=== PATIENT | female | born 1955 | race Caucasian/White ===

== ENCOUNTER → 2017-09-07 | Outpatient (CLI) | payer OTHER ==
[~2017-09-07] MED LIST: DULO30 PO; LEVSOD50 PO
== END ==
LOC: LAB SHORT 18:16 → LAB EV 18:16
DX: H60.11 Cellulitis of right external ear (principal)
CPT/HCPCS: 87070; 87147; 87205

== ENCOUNTER 2017-09-28 11:29 | Day surgery (SDC) | payer OTHER ==
[~2017-09-28] VITALS: Ht 167.6 cm; Wt 95.0 kg
[2017-09-28] MEDS ORDERED: Advair Hfa 230-12 GM (11:36)
[2017-09-28] MEDS ORDERED: DICL75ER (11:36)
[2017-09-28] MEDS ORDERED: ALBU90OI6 (11:36)
[2017-09-28] MEDS ORDERED: HYDR1TAB94 (11:36)
[2017-09-28 13:32] LABS: Hemoglobin 8.8 g/dL (11.5-16.0)
== END 2017-09-28 14:00 | disposition home or self-care (01) ==
LOC: ORSCSDS 11:29
PROVIDERS: Internal Medicine Gastroenterology
PROC: 0DJ08ZZ Inspection of Upper Intestinal Tract, Via Natural or Artificial Opening Endoscopic (ICD-10-PCS; principal; 2017-09-28 15:45)
DX: K92.1 Melena (principal); D64.9 Anemia, unspecified; J45.909 Unspecified asthma, uncomplicated; E03.9 Hypothyroidism, unspecified; Z79.899 Other long term (current) drug therapy; R10.9 Unspecified abdominal pain; Z87.11 Personal history of peptic ulcer disease; R11.0 Nausea; Z98.84 Bariatric surgery status; E66.9 Obesity, unspecified; Z68.33 Body mass index [BMI] 33.0-33.9, adult; K22.2 Esophageal obstruction
CPT/HCPCS: 85014; 85018; J2405; J3301

== ENCOUNTER 2018-03-01 06:31 | Day surgery (SDC) | payer OTHER ==
[~2018-03-01] VITALS: Ht 167.6 cm; Wt 93.6 kg
[~2018-03-01 06:31] MED LIST changes: +ALBU90OI6; +Advair Hfa 230-12 GM; +DICL75ER; +HYDR1TAB94
[2018-03-01 11:44] LABS: BASOPHILS ABSOLUTE AUTO 0.02 K/mm3 (0.00-0.23); BASOPHILS PERCENT AUTO 1 % (0-2); EOSINOPHILS ABSOLUTE AUTO 0.05 K/mm3 (0.00-0.68); EOSINOPHILS PERCENT AUTO 1 % (0-6); Hematocrit 36.2 % (33.0-51.0); Hemoglobin 10.8 g/dL (11.5-16.0); IMMATURE GRAN PERCENT AUTO 0 % (0-1); LYMPHOCYTES ABSOLUTE AUTO 1.05 K/mm3 (0.84-5.20); LYMPHOCYTES PERCENT AUTO 28 % (21-46); MONOCYTES ABSOLUTE AUTO 0.35 K/mm3 (0.16-1.47); MONOCYTES PERCENT AUTO 9 % (4-13); Mean Corpuscular HGB 25.5 pg (26.0-34.0); Mean Corpuscular HGB Conc 29.8 g/dL (31.5-36.5); Mean Corpuscular Volume 86 fL (80-100); NEUTROPHILS ABSOLUTE AUTO 2.31 K/mm3 (1.96-9.15); NEUTROPHILS PERCENT AUTO 61 % (41-73); Platelet Count 233 K/mm3 (150-400); RDW Coefficient Variation 20.4 % (11.7-14.2); RDW Standard Deviation 63.1 fL (35.1-46.3); Red Blood Cell Count 4.23 M/mm3 (3.80-5.20); White Blood Cell Count 3.78 K/mm3 (4.00-11.30)
== END 2018-03-01 09:01 | disposition home or self-care (01) ==
LOC: ORSCSDS 06:31
PROVIDERS: Internal Medicine Gastroenterology
PROC: 0DB68ZX Excision of Stomach, Via Natural or Artificial Opening Endoscopic, Diagnostic (ICD-10-PCS; principal; 2018-03-01 08:00)
DX: K92.1 Melena (principal); Z98.84 Bariatric surgery status; D64.9 Anemia, unspecified; J45.909 Unspecified asthma, uncomplicated; E03.9 Hypothyroidism, unspecified; Z87.11 Personal history of peptic ulcer disease; Z79.899 Other long term (current) drug therapy
CPT/HCPCS: 85025; J0330; J1980; J2405; J7120

== ENCOUNTER → 2019-02-12 | Outpatient (CLI) | payer OTHER ==
[2019-02-14 15:07] LABS: HPV 16 Negative (Negative); HPV 18 Negative (Negative); HPV OTHER HR TYPES Negative (Negative)
== END | disposition home or self-care (01) ==
LOC: LAB SHORT 15:59 → LAB 15:59
PROVIDERS: Internal Medicine
DX: Z01.419 Encounter for gynecological examination (general) (routine) without abnormal findings (principal)
CPT/HCPCS: 87624; G0145

== ENCOUNTER → 2020-02-24 | Outpatient (CLI) | payer OTHER ==
[2020-02-25 13:24] LABS: Stool Occult Blood Guaiac 1 Neg (Neg); Stool Occult Blood Guaiac 2 Neg (Neg); Stool Occult Blood Guaiac 3 Neg (Neg)
== END | disposition home or self-care (01) ==
LOC: LAB 10:00 → LAB SHORT 10:00 → LAB FUT 02-20 16:50
PROVIDERS: Internal Medicine
DX: D50.9 Iron deficiency anemia, unspecified (principal)
CPT/HCPCS: 82272

== ENCOUNTER → 2020-07-29 | Outpatient (CLI) | payer OTHER ==
[2020-07-29 16:01] LABS: Source, Urine Clean Catch
[2020-07-29 16:38] LABS: Appearance, Urine Hazy (Clear); Bilirubin, Urine Neg (Neg); Blood, Urine 3+ (Neg); Color, Urine Yellow (P-Yellow); Glucose Qualitative, Urine Neg (Neg); Ketones, Urine Neg (Neg); Leukocyte Esterase, Urine 2+ (Neg); Nitrite, Urine Pos (Neg); Protein, Urine 2+ (Neg); Urobilinogen, Urine NORM (Normal)
[2020-07-29 16:44] LABS: White Blood Cells, Urine TNTC /hpf (0-5)
[2020-07-29 16:45] LABS: Bacteria Many /hpf; Squamous Epithelial Cells Few /hpf (Few)
== END | disposition home or self-care (01) ==
LOC: LAB 16:00 → LAB SHORT 16:00 → LAB FUT 06-19 17:30
PROVIDERS: Internal Medicine
DX: N39.0 Urinary tract infection, site not specified (principal); R30.0 Dysuria
CPT/HCPCS: 81001; 87077; 87086; 87186

== ENCOUNTER → 2024-07-24 | Outpatient (CLI) | payer MEDICARE, OTHER ==
[~2024-07-24] MED LIST changes: +CYCL10 PO; +LEVFLO500 PO; +LIDO700A20 TOP; +OXYACE7.5T PO; +QUETIAPINE FUMA25 MG PO
== END ==
LOC: LAB 08:48 → LAB SHORT 08:48
DX: J03.90 Acute tonsillitis, unspecified (principal)
CPT/HCPCS: 87081

== ENCOUNTER → 2025-02-27 | Outpatient (CLI) | payer MEDICARE, OTHER | LOC: LAB SHORT 16:35 → LAB 16:35 | DX: R30.0 Dysuria (principal) | CPT/HCPCS: 87086 ==